=== PATIENT | female | born 1960 | race Caucasian/White ===

== ENCOUNTER → 2017-03-04 | Day surgery (SDC) | payer OTHER ==
[~2017-03-04] MED LIST: BROMSYP PO; BUPIVACAINE/EPINEPHRINE 0.25% 50 ML VIAL ONE; CETI10CA3 PO; COZA100T PO; EFFE150C PO; FLUT1SPR5 EACH NARE; INFL1INJ56 IM; KETOROLAC TROMETHAMINE 30 MG/ML (IVP) VIAL IV PUSH ONE; LACTATED RINGER'S 1000 ML INJ 1,000 ML ONE; LEVEMIR SQ; MEPERIDINE HCL 50 MG/ML VIAL ONE; METO25TA6 PO; MIDAZOLAM HCL 2 MG/2 ML VIAL ONE; NOVOLOGP2 SQ; NOVOLOGSS SQ; ONDANSETRON HCL 4 MG/2 ML VIAL IV PUSH ONE; PERC5TAB12 PO; PROPOFOL 200 MG/20 ML AMP IV ONE; ROPI2TAB PO; TIZA4TAB PO; VANCOMYCIN HCL 1000 MG VIAL ONE; XANA1TAB2 PO; ceFAZolin INJ 1,000 MG VIAL ONE
--- NOTE | 2017-03-09 08:37 | PD.OP ---
cc: Zak Humphrey Jr., MD Operative Report Date of Surgery: Mar 04, 2017 Preoperative Diagnosis: painful hardware right clavicle Postoperative Diagnosis: same Procedure: right clavicle removal of hardware Anesthesia: gen Surgeon: Zak Humphrey Head Charger(s): staff Resident Surgeon: none Operation and Findings: INDICATIONS FOR OPERATION: The patient is a 56 year-old female Status post RIGHT clavicle reduction internal fixation. The fracture has healed and she subsequently complains of painful hardware in RIGHT clavicle. She now presents for removal of hardware. After thorough discussion of risks, benefits and alternatives, informed consent was obtained for removal of hardware of the RIGHT clavicle. DESCRIPTION OF OPERATION: The patient was brought to the OR and place supine. After general anesthesia was induced, the patient was positioned in the beach- chair position. Next, the right upper extremity was prepped and draped in the usual sterile fashion, including the clavicle. Next, a standard incision was made Directly through the previous scar. Dissection was carried down to the deep layer exposing the clavicle hardware. Using the appropriate screwdriver the screws were removed first and the plate was elevated off the bone. The fracture has completely healed. Plain films were obtained in the operating room showing Complete removal of all hardware. Next, the wound was closed in layers followed by application of a sterile dressing over the skin. The patient was placed into a sling postoperatively. The patient was then awakened from anesthesia, transferred back onto the stretcher, and taken to the PACU for recovery. There were no complications. Zak Humphrey Jr., MD Mar 09, 2017 08:37
== END | disposition home or self-care (01) ==
LOC: ESDC 10:45
PROVIDERS: ATTEND Orthopaedic Surgery
DX: T84.84XA Pain due to internal orthopedic prosthetic devices, implants and grafts, initial encounter (principal)
CPT/HCPCS: 00450; 20680; 73020; 76000; J0690; J1885; J2175; J2250; J2405; J3010; J3370; J7120

== ENCOUNTER 2017-03-31 16:07 | Emergency (ER) | payer OTHER ==
[~2017-03-31] VITALS: Ht 167.6 cm; Wt 90.0 kg
[~2017-03-31 16:07] MED LIST changes: -BUPIVACAINE/EPINEPHRINE 0.25% 50 ML VIAL ONE; -INFL1INJ56 IM; -KETOROLAC TROMETHAMINE 30 MG/ML (IVP) VIAL IV PUSH ONE; -LACTATED RINGER'S 1000 ML INJ 1,000 ML ONE; -MEPERIDINE HCL 50 MG/ML VIAL ONE; -METO25TA6 PO; -MIDAZOLAM HCL 2 MG/2 ML VIAL ONE; -ONDANSETRON HCL 4 MG/2 ML VIAL IV PUSH ONE; -PROPOFOL 200 MG/20 ML AMP IV ONE; -VANCOMYCIN HCL 1000 MG VIAL ONE; -ceFAZolin INJ 1,000 MG VIAL ONE
[2017-03-31 16:10] VITALS: BP 143/92; PULSE 112; RESP 16; TEMP 98.2; O2SAT 98
[2017-03-31] MEDS ORDERED: SODIUM CHLORIDE 0.9% FLUSH 10 ML FLUSH IVF PRN (17:00)
[2017-03-31] MEDS ORDERED: SODIUM CHLOR 0.9% 1000 ML INJ 1,000 ML IV ONE (17:00)
--- NOTE | 2017-03-31 17:03 | PD ---
HPI Chief Complaint: Cardiac Complaint Time Seen by Provider: 16:57 Travel History International Travel<30 days: No Contact w/Intl Traveler<30days: No Traveled to known affect area: No History of Present Illness HPI 48-year-old female presents to the emergency department for evaluation of hypertension, tachycardia. She states is been ongoing for over 2 weeks. She reports increased stress in her life with her being sick and her mother- in-law being admitted to the psychiatric unit. Patient states that 2 days ago, she was dizzy and she fell and hit her head. No loss of consciousness. She does not take anticoagulants. No severe headache. She states the dizziness has resolved since then. She also states that 2 days ago, she had diarrhea and stomach cramping. These symptoms have also resolved. She denies any headache. No fevers or chills. No chest pain or shortness of breath. No abdominal pain. No nausea, vomiting, diarrhea. Patient brings a list of blood pressures with her that range from 120-160 systolic. She is concerned of her blood pressure. She currently takes losartan for her blood pressure. Patient follows up with the resident of the family practice clinic. Upon review of previous vital signs, the patient has history of tachycardia for several months. PFSH Past Medical History Hx Anticoagulant Therapy: Yes Cardiovascular Problems: Yes Diabetes: Yes Hypertension: Yes Reproductive: Yes (MULTIPLE ABLATIONS, OOPHORECTOMY, HYSTERECTOMY) Past Surgical History Abdominal Surgery: Yes (MULTIPLE ABDOMINAL SURGERIES ) Gynecologic Surgery: Yes (OOPHORECTOMY) Hysterectomy: Yes Other Surgery: Yes (BREAST SURGERY 1983 ) Social History Alcohol Use: Yes (OCCASIONALLY) Tobacco Use: Yes (3-4 CIGARETTES OCCASIONALLY/SOCIALLY ) Substance Use: Yes (MARIJUANA ) Allergies-Medications (Allergen,Severity, Reaction): Coded Allergies: No Known Allergies (Unverified , 03/31/17) Reported Meds & Prescriptions Reported Meds & Active Scripts Active Bromfed DM Liq (Tscbfpivmukwwql-Neagmmwqeetwmmn-YJ Liq) 30-2-10 Mg/5 Ml Syrp 5 Ml PO Q6H PRN Xanax (Alprazolam) 1 Mg Tab 1 Mg PO Q8H PRN Ropinirole 2 Mg Tab 2 Mg PO HS Tizanidine (Tizanidine HCl) 4 Mg Tab 4 Mg PO TID Novolog Inj (Insulin Aspart) 1,000 Unit/10 Ml Vial 5-25 Units SQ TIDAC sugars<70,0units;-325,5units;sugar 200-249,10units;sugar 250-299,15units; [id number],20units;sugar>349,25units Levemir Inj (Insulin Detemir) 1,000 unit/ 10 ML Vial 40 Units SQ DAILY Do not mix with any other Insulin. Effexor XR 24 HR (Venlafaxine HCl) 150 Mg Cap 150 Mg PO DAILY Zyrtec (Cetirizine HCl) 10 Mg Capsule 10 Tab PO DAILY Flonase Nasal [place] (Fluticasone Nasal [place]) 50 Mcg/Act [place] 50 Mcg EACH NARE BID Cozaar (Losartan Potassium) 100 Mg Tab 100 Mg PO DAILY Review of Systems Except as stated in HPI: all other systems reviewed are Neg Physical Exam Narrative GENERAL: Well-nourished, well-developed female patient, afebrile. SKIN: Focused skin assessment warm/dry. Patient has healing abrasion to the left forehead HEAD: Normocephalic. ENT: Mucosa pink and moist. No erythema or exudates. No uvular edema. No uvular , palatal, or tonsillar deviation. Airway patent. Nasal turbinates appear normal without nasal blood, purulent drainage or septal hematoma. EYES: No scleral icterus. No injection or drainage. NECK: Supple, trachea midline. No JVD or lymphadenopathy. CARDIOVASCULAR: Regular rate and rhythm without murmurs, gallops, or rubs. Bilateral radial and pedal pulses are 2+. RESPIRATORY: Breath sounds equal bilaterally. No accessory muscle use. Lungs sounds are clear to auscultation. GASTROINTESTINAL: Abdomen soft, non-tender, nondistended. MUSCULOSKELETAL: No cyanosis, or edema. BACK: Nontender without obvious deformity. No CVA tenderness. Data Data Last Documented VS Vital Signs Date Time Temp Pulse Resp B/P (MAP) Pulse Ox O2 Delivery O2 Flow Rate FiO2 03/31/17 19:31 98 20 130/67 (88) 99 Room Air 03/31/17 16:10 98.2 Orders Orders Basic Metabolic Panel (Bmp) (03/31/17 16:56) Ckmb (Isoenzyme) Profile (03/31/17 16:56) Complete Blood Count With Diff (03/31/17 16:56) Magnesium (Mg) (03/31/17 16:56) Troponin I (03/31/17 16:56) Ecg Monitoring (03/31/17 16:56) Bilateral Bp Monitoring (03/31/17 16:56) Iv Access Insert/Monitor (03/31/17 16:56) Oximetry (03/31/17 16:56) Oxygen Administration (03/31/17 16:56) Sodium Chloride 0.9% Flush (Ns Flush) (03/31/17 17:00) Sodium Chlor 0.9% 1000 Ml Inj (Ns 1000 M (03/31/17 17:00) Electrocardiogram (03/31/17 ) Urinalysis - C+S If Indicated (03/31/17 16:57) Dextrose 50% In [place] (Syr) Inj (D50w (Syr (03/31/17 18:45) Diet Diabetic (03/31/17 Dinner) Dextrose 50% In [place] (Syr) Inj (D50w (Syr (03/31/17 18:32) Labs Laboratory Tests Test 03/31/17 14:05 03/31/17 17:00 White Blood Count 13.1 TH/MM3 Red Blood Count 4.38 MIL/MM3 Hemoglobin 12.3 GM/DL Hematocrit 37.2 % Mean Corpuscular Volume 85.0 FL Mean Corpuscular Hemoglobin 28.1 PG Mean Corpuscular Hemoglobin Concent 33.0 % Red Cell Distribution Width 14.1 % Platelet Count 328 TH/MM3 Mean Platelet Volume 9.2 FL Neutrophils (%) (Auto) 50.7 % Lymphocytes (%) (Auto) 40.6 % Monocytes (%) (Auto) 5.2 % Eosinophils (%) (Auto) 2.2 % Basophils (%) (Auto) 1.3 % Neutrophils # (Auto) 6.6 TH/MM3 Lymphocytes # (Auto) 5.3 TH/MM3 Monocytes # (Auto) 0.7 TH/MM3 Eosinophils # (Auto) 0.3 TH/MM3 Basophils # (Auto) 0.2 TH/MM3 CBC Comment AUTO DIFF Differential Total Cells Counted 100 Neutrophils % (Manual) 39 % Lymphocytes % 57 % Monocytes % 2 % Eosinophils % 2 % Neutrophils # (Manual) 5.1 TH/MM3 Differential Comment FINAL DIFF MANUAL Blood Urea Nitrogen 9 MG/DL Creatinine 0.99 MG/DL Random Glucose 36 MG/DL Calcium Level 9.7 MG/DL Magnesium Level 2.0 MG/DL Sodium Level 138 MEQ/L Potassium Level 3.5 MEQ/L Chloride Level 104 MEQ/L Carbon Dioxide Level 25.1 MEQ/L Anion Gap 9 MEQ/L Estimat Glomerular Filtration Rate 58 ML/MIN Total Creatine Kinase 87 U/L Troponin I LESS THAN 0.02 NG/ML Urine Color COLORLESS Urine Turbidity CLEAR Urine pH 6.0 Urine Specific [place] 1.002 Urine Protein NEG mg/dL Urine Glucose (UA) NEG mg/dL Urine Ketones NEG mg/dL Urine Occult Blood NEG Urine Nitrite NEG Urine Bilirubin NEG Urine Urobilinogen LESS THAN 2.0 MG/DL Urine Leukocyte Esterase NEG Urine Squamous Epithelial Cells 1 /hpf Microscopic Urinalysis Comment CULT NOT INDICATED MDM Medical Decision Making Medical Screen Exam Complete: Yes Emergency Medical Condition: Yes Medical Record Reviewed: Yes Differential Diagnosis Anxiety versus electrolyte abnormality versus dehydration versus unlikely ACS Narrative Course 56-year-old female presents to the emergency department for evaluation of tachycardia and hypertension and ongoing for several weeks. Upon review of vital signs, the patient's been tachycardic since April 2016. Blood pressure here is 143/90 in triage. Patient states she was dizzy and had diarrhea 2 days ago, but reports these symptoms are completely resolved. EKG shows sinus tachycardia, heart rate 107, no acute ST changes. CBC, BMP, CK, troponin, magnesium, UA are ordered and pending. Patient is given normal saline 1 L IV bolus. CBC shows leukocytosis 13.1. BMP shows hypoglycemia 36. CK is 87. Troponin is less than 0.02. Magnesium is 2.0. UA is negative for acute infection. With glucose of 36. Nurse's directed at bedside was 66. The patient is asymptomatic. She does state that she has been taken her insulin today, but not eating. Patient is given 1 amp of D50. Patient is given food. Blood sugars will be checked every hour 3. These are 114,180, and 163. The patient was discharged in stable condition with instructions, including return instructions and follow up instructions. Diagnosis Primary Impression: Hypoglycemia Additional Impression: Hypertension Qualified Codes: I10 - Essential (primary) hypertension Referrals: Primary Care Physician 2 days Patient Instructions: Chronic Hypertension (ED), General Instructions, Hypoglycemia in a Person with Diabetes (ED) Additional Instructions: Monitor your blood glucose closely. Follow up with your primary care physician. Return to the emergency department for any acute, worsening of symptoms. Med/Other Pt SpecificInfo: No Change to Meds Disposition: 01 DISCHARGE HOME Condition: Stable Juli Correa Mar 31, 2017 17:02
[2017-03-31 17:37] LABS: BLOOD, URINE NEG (NEG); COMMENT (UR) CULT NOT INDICATED; CULTURE IF INDICATED CULT NOT INDICATED; GLUCOSE,URINE NEG (NEG); KETONE, URINE NEG (NEG); NITRITE,URINE NEG (NEG); SQUAMOUS EPITHELIAL CELL URINE 1 /hpf (0-5); URINE COLOR COLORLESS (YELLW/STRAW)
[2017-03-31 17:40] LABS: AUTOMATED NEUTROPHIL # 6.6 TH/MM3 (1.8-7.7); BASOPHIL # 0.2 TH/MM3 (0-0.2); BASOPHIL % 1.3 % (0.0-2.0); EOSINOPHIL # 0.3 TH/MM3 (0-0.4); EOSINOPHIL % 2.2 % (0.0-4.0); HEMATOCRIT 37.2 % (35.0-46.0); LYMPH % 40.6 % (9.0-44.0); LYMPHOCYTE # 5.3 TH/MM3 (1.0-4.8); MEAN CORPUSCULAR HEMOGLOBIN 28.1 PG (27.0-34.0); MONO % 5.2 % (0.0-8.0); NEUT % 50.7 % (16.0-70.0); PLATELET COUNT 328 TH/MM3 (150-450); RED BLOOD COUNT 4.38 MIL/MM3 (4.00-5.30); RED CELL DISTRIBUTION WIDTH 14.1 % (11.6-17.2); WHITE BLOOD COUNT 13.1 TH/MM3 (4.0-11.0)
[2017-03-31 17:53] LABS: HEMO FLAGS AUTO DIFF
[2017-03-31 18:02] LABS: ANION GAP 9 MEQ/L (5-15); BICARBONATE 25.1 MEQ/L (21.0-32.0); BLOOD UREA NITROGEN 9 MG/DL (7-18); CHLORIDE 104 MEQ/L (98-107); GLOMERULAR FILTRATION RATE 58 ML/MIN (>89); POTASSIUM 3.5 MEQ/L (3.5-5.1); SODIUM (NA) 138 MEQ/L (136-145)
[2017-03-31 18:24] LABS: CREATINE KINASE 87 U/L (26-192)
[2017-03-31] MEDS ORDERED: DEXTROSE 50% IN WATER 50 ML SYRINGE ONE (18:32)
[2017-03-31] MEDS ORDERED: DEXTROSE 50% IN WATER 50 ML SYRINGE IV PUSH ONE (18:45)
[2017-03-31 19:31] VITALS: BP 130/67; PULSE 98; RESP 20; O2SAT 99
[2017-03-31 19:55] LABS: EOSINOPHILS 2 % (0-4); NEUTROPHIL # MANUAL DIFF 5.1 TH/MM3 (1.8-7.7); POLYS (SEG NEUTROPHILS) 39 % (16-70); SCAN/DIFF FINAL DIFF MANUAL; WBC DIFF SAMPLE 100
--- NOTE | 2017-04-01 13:04 | EKG ---
Date Performed: 03/31/2017 Time Performed: 16:51:21 PTAGE: 56 years EKG: SINUS TACHYCARDIA ABNORMAL RHYTHM ECG NO PREVIOUS TRACING DOCTOR: Siva Olmos Interpretating Date/Time 04/01/2017 13:02:41
[2017-04-11] MEDS ORDERED: METO25TA6 PO (11:06)
[2017-04-11] MEDS ORDERED: COZA100T PO (11:06)
[2017-04-11] MEDS ORDERED: INFL1INJ56 IM (11:09)
[2017-04-19] MEDS ORDERED: XANA1TAB2 PO (14:12)
[2017-04-19] MEDS ORDERED: INFL1INJ56 IM (14:13)
[2017-04-19] MEDS ORDERED: METO25TA6 PO (14:15)
== END 2017-03-31 22:18 | disposition home or self-care (01) ==
LOC: NEPC 16:07
DX: E16.2 Hypoglycemia, unspecified (principal); I10 Essential (primary) hypertension; E11.9 Type 2 diabetes mellitus without complications; Z72.0 Tobacco use; R94.31 Abnormal electrocardiogram [ECG] [EKG]; Z79.01 Long term (current) use of anticoagulants
CPT/HCPCS: 80048; 81001; 82550; 83735; 84484; 85007; 85027; 93005; 96374; 99284; J7030

== ENCOUNTER 2017-08-08 17:40 | Inpatient (IN) | payer OTHER, MEDICARE ==
[~2017-08-08 17:40] MED LIST changes: +BLOOD GLUCOSE T1 TES; -BROMSYP PO; +FREEMIS45; +METO1TAB42 PO; -NOVOLOGSS SQ; -PERC5TAB12 PO
[2017-08-08 17:42] VITALS: BP 155/88; PULSE 89; RESP 15; TEMP 97.4; O2SAT 99
--- NOTE | 2017-08-08 18:20 | RADRPT ---
EXAM DATE/TIME: 08/08/2017 17:59 [facility] COMPARISON: No previous studies available for comparison. INDICATIONS : Pain laceration with redness and swelling anterior left hand MEDICAL HISTORY : None. SURGICAL HISTORY : None. ENCOUNTER: Initial ACUITY: 3 days PAIN SCORE: 8/10 LOCATION: Left Hand FINDINGS: Three view examination of the left hand demonstrates no soft tissue swelling, dislocation, or fractur e. The carpal bones appear intact. The interphalangeal and metacarpophalangeal joints are intact. Bony mineralization is normal. CONCLUSION: 1. No acute bony abnormality. No radiopaque foreign body. Blake Arias MD on August 08, 2017 at 18:16 Board Certified Radiologist. This report was verified electronically.
[2017-08-08 19:21] LABS: AUTOMATED NEUTROPHIL # 7.3 TH/MM3 (1.8-7.7); BASOPHIL # 0.1 TH/MM3 (0-0.2); BASOPHIL % 0.7 % (0.0-2.0); EOSINOPHIL # 0.3 TH/MM3 (0-0.4); EOSINOPHIL % 2.4 % (0.0-4.0); HEMATOCRIT 36.3 % (35.0-46.0); LYMPH % 27.7 % (9.0-44.0); LYMPHOCYTE # 3.2 TH/MM3 (1.0-4.8); MEAN CELL VOLUME 83.8 FL (80.0-100.0); MEAN CORPUSCULAR HEMOGLOBIN 27.6 PG (27.0-34.0); MEAN CORPUSCULAR HGB CONC 32.9 % (32.0-36.0); MEAN PLATELET VOLUME 8.3 FL (7.0-11.0); MONO % 6.2 % (0.0-8.0); MONOCYTE # 0.7 TH/MM3 (0-0.9); PLATELET COUNT 282 TH/MM3 (150-450); RED BLOOD COUNT 4.33 MIL/MM3 (4.00-5.30); RED CELL DISTRIBUTION WIDTH 15.1 % (11.6-17.2); WHITE BLOOD COUNT 11.6 TH/MM3 (4.0-11.0)
[2017-08-08 19:35] LABS: CALCIUM 9.4 MG/DL (8.5-10.1); CREATININE 0.99 MG/DL (0.50-1.00); PROTHROMBIN TIME - PATIENT 10.1 SEC (9.8-11.6)
[2017-08-08] MEDS ORDERED: PIPERACIL-TAZO 3.375 GM PREMIX 50 ML IV ONE (20:00)
[2017-08-08] MEDS ORDERED: VANCOMYCIN INJ 1,000 MG in SODIUM CHLOR 0.9% 250 ML INJ 250 ML IV ONE (20:00)
[2017-08-08] MEDS ORDERED: DEXTROSE 25% IN WATER 10 ML SYRINGE IV PUSH ONE (20:00)
[2017-08-08] MEDS ORDERED: KETOROLAC TROMETHAMINE 30 MG/ML (IVP) VIAL IV PUSH ONE (20:15)
[2017-08-08] MEDS ORDERED: DEXTROSE 50% IN WATER 50 ML SYRINGE IV ONE (20:30)
[2017-08-08] MEDS ORDERED: MORPHINE SULFATE 4 MG/ML INJ IV PUSH ONE (20:30)
[2017-08-08] MEDS ORDERED: ONDANSETRON HCL 4 MG/2 ML VIAL IV PUSH ONE (20:30)
--- NOTE | 2017-08-08 20:41 | HHI.HP ---
[facility] Service Family Medicine Primary Care Physician Gopal Raman MD Admission Diagnosis left hand cellulitis with lymphadenitis Diagnoses: Chief Complaint: hand infection International Travel<30 Days: No Contact w/Intl Traveler<30days: No Known Affected Area: No History of Present Illness Patient is a 56-year-old female with a past medical history significant for DM type II, hypertension, hyperlipidemia, endometriosis, depression and anxiety who presents today for a hand infection. She was cutting an Avocado two days ago when she accidentally sliced her left hand with the knife. The site started getting red, swollen, and painful and has progressively worsened over the past two days. The redness is now extending up her arm. She is having trouble flexing her fingers due to pain. The pain is rated 9/10. She denies any fever. She did take 4 pills of a leftover Clindamycin 300mg prescription over the course of the last two days. She was evaluated by her PCP, Dr. Gopal Raman , today and was sent to the ED for further evaluation and treatment. She notes that she has also had diarrhea for the past week, but thinks this may be due to stress. Her one week ago while on Hospice and she states that her entire world is flipped upside down. She has been having a difficult time coping with his loss and recently had her Xanax increased to 2mg PO TID to help with her anxiety during this stressful time. (Angélica Carrion MD, R3) Review of Systems Constitutional: COMPLAINS OF: Fatigue, Change in appetite (while in mourning), DENIES: Fever, Chills Eyes: DENIES: Blurred vision, Eye pain Ears, nose, mouth, throat: DENIES: Throat pain Respiratory: DENIES: Cough, Shortness of breath Cardiovascular: DENIES: Chest pain Gastrointestinal: COMPLAINS OF: Diarrhea, DENIES: Abdominal pain, Nausea, Vomiting Musculoskeletal: COMPLAINS OF: Muscle aches, Back pain (chronic) Integumentary: COMPLAINS OF: Abnormal pigmentation Hematologic/lymphatic: DENIES: Bruising Immunologic/allergic: DENIES: Urticaria Neurologic: DENIES: Paresthesias Psychiatric: COMPLAINS OF: Anxiety, Depression (Angélica Carrion MD, R3) Past Family Social History Past Medical History DM, takes insulin HTN High cholesterol chronic severe pelvic pain Endometriosis Anemia-hx of iron infusions Linares esophagus chronic headaches depression anxiety dermatitis on scalp decreased kidney function Past Surgical History Hysterectomy oophorectomy spinal cord stimulator surgery x 4 pelvic nerve blocks cholecystectomy appendectomy gastric bypass in 1999, lost 180 lbs Reported Medications Reported Meds & Active Scripts Active Tizanidine (Tizanidine HCl) 4 Mg Tab 4 Mg PO TID Xanax (Alprazolam) 2 Mg Tab 2 Mg PO Q8H PRN Ropinirole 2 Mg Tab 2 Mg PO HS Zyrtec (Cetirizine HCl) 10 Mg Capsule 10 Tab PO DAILY Freestyle Lite Blood Glucose Monitor (Device) 1 Mis Mis Kit .XX QID Check blood sugar 4 times daily Blood Glucose Test Strips Strips Strip Ea .XX QID Check blood sugar 4 times daily Metoprolol Succinate ER 24 HR (Metoprolol Succinate) 25 Mg Tab 37.5 Mg PO DAILY Cozaar (Losartan Potassium) 100 Mg Tab 100 Mg PO DAILY Effexor XR 24 HR (Venlafaxine HCl) 150 Mg Cap 150 Mg PO DAILY Novolog Inj (Insulin Aspart) 1,000 Unit/10 Ml Vial 5-25 Units SQ TIDAC sugars<70,0units;ozwta478-304,5units;sugar 200-249,10units;sugar 250-299,15units; ornjz100-525,20units;sugar>349,25units Levemir Inj (Insulin Detemir) 1,000 unit/ 10 ML Vial 40 Units SQ DAILY Do not mix with any other Insulin. Flonase Nasal [place] (Fluticasone Nasal [place]) 50 Mcg/Act [place] 50 Mcg EACH NARE BID (Angélica Carrion MD, R3) Allergies: Coded Allergies: No Known Allergies (Unverified Allergy, Unknown, 08/08/17) Family History Mom: 79, DM, pacemaker, hearing loss Father: at 69 diagnosed with Alzheimers at 53 Brother: 53, HTN, bilateral hip replacements Brother: 55, HIV positive, bilateral hip replacements Social History - this week She is disabled from chronic pelvic pain Smokes occasionally, 1 pack every couple of months, had been smoking since 10yo occasionally, Drinks 4-5 beers per week started at 16, marijuana started smoking at 16 smokes once every couple of months, no other drugs. (Angélica Carrion MD, R3) Physical Exam Vital Signs Vital Signs Date Time Temp Pulse Resp B/P (MAP) Pulse Ox O2 Delivery O2 Flow Rate FiO2 08/08/17 17:42 97.4 89 15 155/88 (110) 99 Physical Exam GENERAL: This is a well-nourished, well-developed obese female patient who appears fatigued. SKIN: No rashes, ecchymoses or lesions. Cool and dry. Areas of scabbed excoriations on both arms. Left palm with 2 cm laceration surrounded by 3 x 4 cm area of significant erythema and edema, erythema extends about 12 cm up left arm- area demarcated with a marker on today's exam. No purulent drainage or bleeding. Warmth and tenderness to the touch. HEAD: Atraumatic. Normocephalic. No temporal or scalp tenderness. EYES: Pupils equal round and reactive. Extraocular motions intact. No scleral icterus. No injection or drainage. ENT: Nose without bleeding, purulent drainage or septal hematoma. Throat without erythema, tonsillar hypertrophy or exudate. Uvula midline. Airway patent. NECK: Trachea midline. No JVD or lymphadenopathy. Supple, nontender, no meningeal signs. CARDIOVASCULAR: Regular rate and rhythm without murmurs, gallops, or rubs. RESPIRATORY: Clear to auscultation. Breath sounds equal bilaterally. No wheezes , rales, or rhonchi. GASTROINTESTINAL: Abdomen soft, non-tender, nondistended. No hepato-splenomegaly , or palpable masses. No guarding. MUSCULOSKELETAL: Extremities without clubbing, cyanosis, or edema. No joint tenderness, effusion, or edema noted. No calf tenderness. Pain with passive extension and flexion of left first digit. Range of motion of left fingers limited by pain. NEUROLOGICAL: Awake and alert. Cranial nerves II through XII intact. Motor and sensory grossly within normal limits. Normal speech. PSYCHIATRIC: Sad mood and depressed affect, appropriate insight and judgement, good eye contact. Laboratory Laboratory Tests Test 08/08/17 18:44 White Blood Count 11.6 Red Blood Count 4.33 Hemoglobin 12.0 Hematocrit 36.3 Mean Corpuscular Volume 83.8 Mean Corpuscular Hemoglobin 27.6 Mean Corpuscular Hemoglobin Concent 32.9 Red Cell Distribution Width 15.1 Platelet Count 282 Mean Platelet Volume 8.3 Neutrophils (%) (Auto) 63.0 Lymphocytes (%) (Auto) 27.7 Monocytes (%) (Auto) 6.2 Eosinophils (%) (Auto) 2.4 Basophils (%) (Auto) 0.7 Neutrophils # (Auto) 7.3 Lymphocytes # (Auto) 3.2 Monocytes # (Auto) 0.7 Eosinophils # (Auto) 0.3 Basophils # (Auto) 0.1 CBC Comment DIFF FINAL Differential Comment Prothrombin Time 10.1 Prothromb Time International Ratio 1.0 Activated Partial Thromboplast Time 26.5 Blood Urea Nitrogen 11 Creatinine 0.99 Random Glucose 45 Calcium Level 9.4 Sodium Level 140 Potassium Level 3.7 Chloride Level 107 Carbon Dioxide Level 26.0 Anion Gap 7 Estimat Glomerular Filtration Rate 58 Date/Time Source Procedure Growth Status 08/08/17 18:44 Blood Peripheral Aerobic Blood Culture Pending Received 08/08/17 18:44 Blood Peripheral Anaerobic Blood Culture Pending Received (Angélica Carrion MD, R3) Result Diagram: 08/08/17 1844 08/08/17 1844 Imaging Last Impressions Hand X-Ray 08/08/17 0000 Signed Impressions: Service Date/Time: Tuesday, August 08, 2017 17:59 - CONCLUSION: 1. No acute bony abnormality. No radiopaque foreign body. Blake Arias MD (Angélica Carrion MD, R3) Caprini VTE Risk Assessment Caprini VTE Risk Assessment: Mod/High Risk (score >= 2) Caprini Risk Assessment Model Point Value = 1 Point Value = 2 Point Value = 3 Point Value = 5 Age 41-60 Minor surgery BMI > 25 kg/m2 Swollen legs Varicose veins or History of unexplained or recurrent spontaneous Oral contraceptives or hormone replacement Sepsis (< 1 month) Serious lung disease, including pneumonia (< 1 month) Abnormal pulmonary function Acute myocardial infarction Congestive heart failure (< 1 month) History of inflammatory bowel disease Medical patient at bed rest Age 61-74 Arthroscopic surgery Major open surgery (> 45 min) Laparoscopic surgery (> 45 min) Malignancy Confined to bed (> 72 hours) Immobilizing plaster cast Central venous access Age >= 75 History of VTE Family history of VTE Factor V Leiden Prothrombin [id number] Lupus anticoagulant Anticardiolipin antibodies Elevated serum homocysteine Heparin-induced thrombocytopenia Other congenital or acquired thrombophilia Stroke (< 1 month) Elective arthroplasty Hip, pelvis, or leg fracture Acute spinal cord injury (< 1 month) Prophylaxis Regimen Total Risk Factor Score Risk Level Prophylaxis Regimen 0-1 Low Early ambulation 2 Moderate Order ONE of the following: *Sequential Compression Device (SCD) *Heparin 5000 units SQ BID 3-4 Higher Order ONE of the following medications: *Heparin 5000 units SQ TID *Enoxaparin/Lovenox 40 mg SQ daily (WT < 150 kg, CrCl > 30 mL/min) *Enoxaparin/Lovenox 30 mg SQ daily (WT < 150 kg, CrCl > 10-29 mL/min) *Enoxaparin/Lovenox 30 mg SQ BID (WT < 150 kg, CrCl > 30 mL/min) AND/OR *Sequential Compression Device (SCD) 5 or more Highest Order ONE of the following medications: *Heparin 5000 units SQ TID (Preferred with Epidurals) *Enoxaparin/Lovenox 40 mg SQ daily (WT < 150 kg, CrCl > 30 mL/min) *Enoxaparin/Lovenox 30 mg SQ daily (WT < 150 kg, CrCl > 10-29 mL/min) *Enoxaparin/Lovenox 30 mg SQ BID (WT < 150 kg, CrCl > 30 mL/min) AND *Sequential Compression Device (SCD) (Angélica Carrion MD, R3) Assessment and Plan Assessment and Plan Patient is a 56-year-old female with a past medical history significant for DM type II, hypertension, hyperlipidemia, endometriosis, depression and anxiety who presents today for a hand laceration and is admitted for cellulitis. Code Status DNR Discussed Condition With wdw Dr. Olmos and Dr. Garcia R3 (Angélica Carrion MD, R3) Attending Attestation The patient has been seen and examined this am, H&P reviewed. The chart and all resident notes have been reviewed. I agree that inpatient care is appropriate and that a two midnight stay is expected for the reasons documented in the resident history and physical. I have discussed this with the resident and certify the residents order for inpatient admission. (Marlyn Olmos MD) Problem List: (1) Cellulitis of hand, left ICD Codes: L03.114 - Cellulitis of left upper limb Status: Acute Plan: Physical exam consistent with non-purulent cellulitis. Leukocytosis of 11.6. Afebrile. BP WNLs and pt. not tachycardic. Blood cultures pending. IV Vanc. Q12 hrs (pharm assisting with dosing.) and Zosyn 3.375g IV Q6H Pain control with [place] PRN, Morphine PRN Breakthrough pain Elevate affected area. Continue to monitor closely for signs of tendon involvement. (2) T2DM (type 2 diabetes mellitus) ICD Codes: E11.9 - Type 2 diabetes mellitus without complications Status: Chronic Plan: On Levemir 40 units SQ daily and Novolog TIDAC Hypoglycemic on admission Low dose SSI with Accu-checks (3) Anxiety ICD Codes: F41.9 - Anxiety disorder, unspecified Status: Chronic Plan: Continue Xanax 2mg PO TID (4) Hypertension ICD Codes: I10 - Essential (primary) hypertension Status: Chronic Plan: BP elevated on admission at 155/88 Continue home Losartan 100mg PO Daily and Metoprolol 37.5mg PO daily (5) Nutrition, metabolism, and development symptoms ICD Codes: R63.8 - Other symptoms and signs concerning food and fluid intake Status: Acute Plan: Fluids: Maintenance with NS @ 130ml/hr Electrolytes: wnl, continue to monitor and replete PRN Nutrition: Diabetic Diet DVT Ppx: Heparin 5000 units BID (Angélica Carrion MD, R3) Problem List: (1) Cellulitis of hand, left ICD Codes: L03.114 - Cellulitis of left upper limb Status: Acute (2) Anxiety ICD Codes: F41.9 - Anxiety disorder, unspecified Status: Chronic (3) Hypertension ICD Codes: I10 - Essential (primary) hypertension Status: Chronic (4) Nutrition, metabolism, and development symptoms ICD Codes: R63.8 - Other symptoms and signs concerning food and fluid intake Status: Acute (5) T2DM (type 2 diabetes mellitus) ICD Codes: E11.9 - Type 2 diabetes mellitus without complications Status: Chronic (6) Diarrhea ICD Codes: R19.7 - Diarrhea, unspecified Status: Acute Plan: Baseline C diff testing in pt with 1wk hx watery diarrhea, no other risk factors (Marlyn Olmos MD) Physician Certification 2 Midnight Certification Type: Admission for Inpatient Services Order for Inpatient Services The services are ordered in accordance with Medicare regulations or non- Medicare payer requirements, as applicable. In the case of services not specified as inpatient-only, they are appropriately provided as inpatient services in accordance with the 2-midnight benchmark. Estimated LOS (days): 2 days is the estimated time the patient will need to remain in the hospital, assuming treatment plan goals are met and no additional complications. Post-Hospital Plan: Home (Angélica Carrion MD, R3) Problem Qualifiers (1) T2DM (type 2 diabetes mellitus): Qualified Codes: E11.9 - Type 2 diabetes mellitus without complications; Z79.4 - [facility]CI (current) use of insulin (2) Hypertension: Qualified Codes: I10 - Essential (primary) hypertension Angélica Carrion MD, R3 Aug 08, 2017 20:41 Marlyn Olmos MD Aug 09, 2017 09:36
--- NOTE | 2017-08-08 20:42 | PD ---
HPI Chief Complaint: Injury Time Seen by Provider: 19:51 Travel History International Travel<30 days: No Contact w/Intl Traveler<30days: No Traveled to known affect area: No History of Present Illness HPI 56-year-old female that presents to the ED for evaluation of cellulitis to the left hand. Patient reports that 2 days ago she was cutting vegetables and she actually cut her palm. She denies any other injury. Unclear of her last tetanus shot. Per patient since this started patient developed some swelling and redness. She's been having difficulty completely extending the digits. She has pain with flexion of the digits as well. She is able to do it however. He denies any numbness, tingling, weakness. She went to see her doctor Dr. Raman today who recommends that she comes here for IV antibiotics and admission. She denies any other medical issues. No allergies to medication. No chest pain or shortness of breath. History of diabetes. She was found to be hypoglycemic in triage and given Gatorade. PFSH Past Medical History Hx Anticoagulant Therapy: Yes Anxiety: Yes Cardiovascular Problems: Yes Diabetes: Yes Patient Takes Glucophage: No Hypertension: Yes Reproductive: Yes (MULTIPLE ABLATIONS, OOPHORECTOMY, HYSTERECTOMY) Influenza Vaccination: Yes Past Surgical History Abdominal Surgery: Yes (MULTIPLE ABDOMINAL SURGERIES ) Gynecologic Surgery: Yes (OOPHORECTOMY) Hysterectomy: Yes Other Surgery: Yes (BREAST SURGERY 1983 ) Social History Alcohol Use: Yes (OCCASIONALLY) Tobacco Use: Yes (3-4 CIGARETTES OCCASIONALLY/SOCIALLY ) Substance Use: Yes (MARIJUANA ) Allergies-Medications (Allergen,Severity, Reaction): Coded Allergies: No Known Allergies (Unverified Allergy, Unknown, 08/08/17) Reported Meds & Prescriptions Reported Meds & Active Scripts Active Tizanidine (Tizanidine HCl) 4 Mg Tab 4 Mg PO TID Xanax (Alprazolam) 1 Mg Tab 1 Mg PO Q8H PRN Ropinirole 2 Mg Tab 2 Mg PO HS Zyrtec (Cetirizine HCl) 10 Mg Capsule 10 Tab PO DAILY Freestyle Lite Blood Glucose Monitor (Device) 1 Mis Mis Kit .XX QID Check blood sugar 4 times daily Blood Glucose Test Strips Strips Strip Ea .XX QID Check blood sugar 4 times daily Metoprolol Succinate ER 24 HR (Metoprolol Succinate) 25 Mg Tab 37.5 Mg PO DAILY Cozaar (Losartan Potassium) 100 Mg Tab 100 Mg PO DAILY Effexor XR 24 HR (Venlafaxine HCl) 150 Mg Cap 150 Mg PO DAILY Novolog Inj (Insulin Aspart) 1,000 Unit/10 Ml Vial 5-25 Units SQ TIDAC sugars<70,0units;pfgli962-719,5units;sugar 200-249,10units;sugar 250-299,15units; huevw911-155,20units;sugar>349,25units Levemir Inj (Insulin Detemir) 1,000 unit/ 10 ML Vial 40 Units SQ DAILY Do not mix with any other Insulin. Flonase Nasal [place] (Fluticasone Nasal [place]) 50 Mcg/Act [place] 50 Mcg EACH NARE BID Review of Systems Except as stated in HPI: all other systems reviewed are Neg Physical Exam Narrative GENERAL: SKIN: Warm and dry. Patient has swelling and erythema noted on the palmar aspect of the left hand. About 3-5 cms in diameter. Patient does have a superficial laceration which appears to be healing but no purulence or mass deformity noted. Some erythema and swelling noted creeping up the wrist. Patient does have lymphadenopathy on the left side of the axilla. HEAD: Atraumatic. Normocephalic. EYES: Pupils equal and round. No scleral icterus. No injection or drainage. ENT: No nasal bleeding or discharge. Mucous membranes pink and moist. NECK: Trachea midline. No JVD. CARDIOVASCULAR: Regular rate and rhythm. No murmurs, S3, S4. RESPIRATORY: No accessory muscle use. Clear to auscultation. Breath sounds equal bilaterally. GASTROINTESTINAL: Abdomen soft, non-tender, nondistended. Hepatic and splenic margins not palpable. MUSCULOSKELETAL: Extremities without clubbing, cyanosis, or edema. No obvious deformities. Full range of motion of the upper and lower extremities bilaterally. 2+ pulses bilaterally. NEUROLOGICAL: Awake and alert. No obvious cranial nerve deficits. Motor grossly within normal limits. Five out of 5 muscle strength in the arms and legs. Normal speech. PSYCHIATRIC: Appropriate mood and affect; insight and judgment normal. Data Data Last Documented VS Vital Signs Date Time Temp Pulse Resp B/P (MAP) Pulse Ox O2 Delivery O2 Flow Rate FiO2 08/08/17 17:42 97.4 89 15 155/88 (110) 99 Orders Orders Hand, Complete ([id number]) (08/08/17 ) Complete Blood Count With Diff (08/08/17 17:48) Basic Metabolic Panel (Bmp) (08/08/17 17:48) Coag Profile (08/08/17 17:48) Blood Culture (08/08/17 17:48) Vancomycin Inj (Vancomycin Inj) (08/08/17 20:00) Piperacil-Tazo 3.375 Gm Premix (Zosyn 3. (08/08/17 20:00) Ketorolac Inj (Toradol Inj) (08/08/17 20:15) Morphine Inj (Morphine Inj) (08/08/17 20:30) Ondansetron Inj (Zofran Inj) (08/08/17 20:30) Dextrose 50% In [place] (Syr) Inj (D50w (Syr (08/08/17 20:30) Admit Order (Ed Use Only) (08/08/17 20:22) Labs Laboratory Tests Test 08/08/17 18:44 White Blood Count 11.6 TH/MM3 Red Blood Count 4.33 MIL/MM3 Hemoglobin 12.0 GM/DL Hematocrit 36.3 % Mean Corpuscular Volume 83.8 FL Mean Corpuscular Hemoglobin 27.6 PG Mean Corpuscular Hemoglobin Concent 32.9 % Red Cell Distribution Width 15.1 % Platelet Count 282 TH/MM3 Mean Platelet Volume 8.3 FL Neutrophils (%) (Auto) 63.0 % Lymphocytes (%) (Auto) 27.7 % Monocytes (%) (Auto) 6.2 % Eosinophils (%) (Auto) 2.4 % Basophils (%) (Auto) 0.7 % Neutrophils # (Auto) 7.3 TH/MM3 Lymphocytes # (Auto) 3.2 TH/MM3 Monocytes # (Auto) 0.7 TH/MM3 Eosinophils # (Auto) 0.3 TH/MM3 Basophils # (Auto) 0.1 TH/MM3 CBC Comment DIFF FINAL Differential Comment Prothrombin Time 10.1 SEC Prothromb Time International Ratio 1.0 RATIO Activated Partial Thromboplast Time 26.5 SEC Blood Urea Nitrogen 11 MG/DL Creatinine 0.99 MG/DL Random Glucose 45 MG/DL Calcium Level 9.4 MG/DL Sodium Level 140 MEQ/L Potassium Level 3.7 MEQ/L Chloride Level 107 MEQ/L Carbon Dioxide Level 26.0 MEQ/L Anion Gap 7 MEQ/L Estimat Glomerular Filtration Rate 58 ML/MIN MDM Medical Decision Making Medical Screen Exam Complete: Yes Emergency Medical Condition: Yes Medical Record Reviewed: Yes Interpretation(s) CBC & BMP Diagram 08/08/17 18:44 Calcium Level 9.4 Last Impressions Hand X-Ray 08/08/17 0000 Signed Impressions: Service Date/Time: Tuesday, August 08, 2017 17:59 - CONCLUSION: 1. No acute bony abnormality. No radiopaque foreign body. Blake Arias MD Differential Diagnosis Cellulitis versus hand infection versus less likely abscess or tenosynovitis Narrative Course 56-year-old female that presents to the ED for evaluation of possible left hand infection. X-ray and labs were ordered in triage. Labs and imaging essentially unremarkable. Patient does have what appears to be significant cellulitis to the left hand. Patient was brought here by her doctor for evaluation of this. Patient was started on IV antibiotics and pain medication. Case was discussed with the residents who agreed to admission to their team. Patient agrees with plan. Diagnosis Primary Impression: Cellulitis of hand, left Admitting Information Admitting Physician Requests: Observation Oscar Weston Aug 08, 2017 20:42
[2017-08-08] MEDS ORDERED: TETANUS/DIPHTHERIA TOXOID ADULT 0.5 ML VIAL IM ONE (20:45)
[2017-08-08] MEDS ORDERED: Vancomycin Consult Pharmacy 1 EA OTHER SCH (21:00)
[2017-08-08] MEDS: SODIUM CHLORIDE 0.9% FLUSH 10 ML FLUSH IV FLUSH SCH (21:00)
[2017-08-08] MEDS ORDERED: SODIUM CHLORIDE 0.9% FLUSH 10 ML FLUSH IV FLUSH PRN (21:00)
[2017-08-08] MEDS ORDERED: ACETAMINOPHEN 500 MG CPLT PO PRN (21:00)
[2017-08-08] MEDS ORDERED: GLUCAGON 1 MG/ML VIAL OTHER PRN (21:15)
[2017-08-08] MEDS ORDERED: DEXTROSE 50% IN WATER 50 ML VIAL(D50) IV PUSH PRN (21:15)
[2017-08-08] MEDS ORDERED: PILL SPLITTER OTHER PRN (21:30)
[2017-08-08] MEDS: SODIUM CHLOR 0.9% 1000 ML INJ 1,000 ML IV SCH (22:52)
[2017-08-08] MEDS ORDERED: ACETAMINOPHEN/HYDROcodone 325 MG/5 MG TAB PO PRN (23:45)
[2017-08-08] MEDS: HEPARIN SODIUM - SQ 10,000 UNITS/ML VIAL SQ SCH (23:45)
[2017-08-08] MEDS ORDERED: NALOXONE HCL 0.4 MG/ML AMP IV PUSH PRN (23:45)
[2017-08-08] MEDS ORDERED: MORPHINE SULFATE 2 MG/ML INJ IV PUSH PRN (23:45)
[2017-08-09 00:02] VITALS: BP 136/71; PULSE 68; RESP 18; TEMP 96.9; O2SAT 99
[2017-08-09] MEDS: ACETAMINOPHEN/HYDROcodone 325 MG/7.5 MG TAB PO PRN ×3 (00:16→17:24)
[2017-08-09] MEDS: ALPRAZolam 1 MG TAB PO PRN ×2 (00:16→10:46)
[2017-08-09] MEDS: PIPERACIL-TAZO 3.375 GM PREMIX 50 ML IV SCH ×4 (02:00→22:38)
[2017-08-09 04:00] VITALS: BP 108/65; PULSE 67; RESP 18; TEMP 96.5; O2SAT 96
[2017-08-09] MEDS: SODIUM CHLOR 0.9% 1000 ML INJ 1,000 ML IV SCH ×3 (05:23→22:38)
--- NOTE | 2017-08-09 07:59 | HHI.FPPN ---
Subjective Remarks Patient reports same amount of swelling and redness in her arm. Denies fevers that are new but does endorse persistent chills that are chronic. She denies cp, sob, or headaches. At home she is taking 40 units of Levemir with a ss NovoLog. She did become hypoglycemic recently (several weeks ago) and required hospitalization. She has been NPO for the past 12+ hours. Morning BG was ~161. (Patrick Garcia MD, R3) Objective Vitals Vital Signs Date Time Temp Pulse Resp B/P (MAP) Pulse Ox O2 Delivery O2 Flow Rate FiO2 08/09/17 04:00 96.5 67 18 108/65 (79) 96 08/09/17 00:02 96.9 68 18 136/71 (92) 99 08/08/17 17:42 97.4 89 15 155/88 (110) 99 I/O 08/08/17 08/08/17 08/08/17 08/09/17 08/09/17 08/09/17 07:00 15:00 23:00 07:00 15:00 23:00 Intake Total 360 ml 50 ml Balance 360 ml 50 ml Intake Oral 360 ml IV Total 50 ml # Voids 1 (Patrick Garcia MD, R3) Result Diagram: 08/08/174 08/08/17 1844 Imaging Last 72 hours Impressions Hand X-Ray 08/08/17 0000 Signed Impressions: Service Date/Time: Tuesday, August 08, 2017 17:59 - CONCLUSION: 1. No acute bony abnormality. No radiopaque foreign body. Blake Arias MD Objective Remarks GENERAL: This is a well-nourished, well-developed obese female patient who appears fatigued. SKIN: No rashes, ecchymoses or lesions. Cool and dry. Areas of scabbed excoriations on both arms. Left palm with 2 cm laceration surrounded by 3 x 4 cm area of significant erythema and edema, erythema extends about 12 cm up left arm- area demarcated with a marker on today's exam. No purulent drainage or bleeding. Warmth and tenderness to the touch. HEAD: Atraumatic. Normocephalic. No temporal or scalp tenderness. EYES: Pupils equal round and reactive. Extraocular motions intact. No scleral icterus. No injection or drainage. ENT: Nose without bleeding, purulent drainage or septal hematoma. Throat without erythema, tonsillar hypertrophy or exudate. Uvula midline. Airway patent. NECK: Trachea midline. No JVD or lymphadenopathy. Supple, nontender, no meningeal signs. CARDIOVASCULAR: Regular rate and rhythm without murmurs, gallops, or rubs. RESPIRATORY: Clear to auscultation. Breath sounds equal bilaterally. No wheezes , rales, or rhonchi. GASTROINTESTINAL: Abdomen soft, non-tender, nondistended. No hepato-splenomegaly , or palpable masses. No guarding. MUSCULOSKELETAL: Extremities without clubbing, cyanosis, or edema. No joint tenderness, effusion, or edema noted. No calf tenderness. Pain with passive extension and flexion of left first digit. Range of motion of left fingers limited by pain. Pain along palpation of lumbar spine - surgical scar 4 cm vertical just to the left side of lumbar spine. NEUROLOGICAL: Awake and alert. Cranial nerves II through XII intact. Motor and sensory grossly within normal limits. Normal speech. PSYCHIATRIC: Sad mood and depressed affect, appropriate insight and judgement, good eye contact. (Patrick Garcia MD, R3) A/P Assessment and Plan Patient is a 56-year-old female with a past medical history significant for DM type II, hypertension, hyperlipidemia, endometriosis, depression and anxiety who presents today for a hand laceration and is admitted for cellulitis. Discharge Planning Waiting surgical evaluation. If debridement, and doing well on PO antibiotics, may be discharged home in 1-2 days (08/10/17 - 08/11/17). (Patrick Garcia MD, R3) Attending Attestation Pt seen and examined, H&P reviewed, and corroborated with pt at bedside. Seen and d/w Dr Garcia this am. Call placed to Dr Reyes re: pt NPO status in event surgery indicated. I HAVE REVIEWED THE RECORD AND AGREE WITH THE ABOVE NOTE AND PLAN OF CARE WAS DISCUSSED. I HAVE AUTHORIZED THE ORDER FOR ADMISSION TO AN IN-PATIENT STATUS. (Marlyn Olmos MD) Problem List: (1) Cellulitis of hand, left ICD Codes: L03.114 - Cellulitis of left upper limb Status: Acute Plan: Physical exam consistent with non-purulent cellulitis. Consult Dr. Reyes with hand surgery. Appreciate his assistance in the management of Mrs. Bare. Leukocytosis of 11.6. Afebrile. BP WNLs and pt. not tachycardic. Blood cultures pending. IV Vanc. Q12 hrs (pharm assisting with dosing.) and Zosyn 3.375g IV Q6H - will continue for now. Pain control with [place] PRN, Morphine PRN Breakthrough pain Elevate affected area. Continue to monitor closely for signs of tendon involvement. (2) Diarrhea ICD Codes: R19.7 - Diarrhea, unspecified Status: Acute Plan: Baseline C diff testing in pt with 1wk hx watery diarrhea, no other risk factors (3) T2DM (type 2 diabetes mellitus) ICD Codes: E11.9 - Type 2 diabetes mellitus without complications Status: Chronic Plan: On Levemir 40 units SQ daily and Novolog TIDAC Hypoglycemic on admission to 45 on BMP. Corrected to 161 this AM. If going for surgery and will be NPO, we will keep her on the sliding scale with no long- acting insulin. If able to eat today 08/09/2017, will give 1/2 of home long- acting dose (20 units Levemir q daily). To follow up recs of surgery. Low dose SSI with Accu-checks (4) Anxiety ICD Codes: F41.9 - Anxiety disorder, unspecified Status: Chronic Plan: Continue Xanax 2mg PO TID (5) Hypertension ICD Codes: I10 - Essential (primary) hypertension Status: Chronic Plan: BP elevated on admission at 155/88 Continue home Losartan 100mg PO Daily and Metoprolol 37.5mg PO daily (6) Nutrition, metabolism, and development symptoms ICD Codes: R63.8 - Other symptoms and signs concerning food and fluid intake Status: Acute Plan: Fluids: Maintenance with NS @ 130ml/hr Electrolytes: wnl, continue to monitor and replete PRN Nutrition: Diabetic Diet DVT Ppx: Heparin [address] Marlyn Olmos. (Patrick Garcia MD, R3) Problem Qualifiers (1) T2DM (type 2 diabetes mellitus): Qualified Codes: E11.9 - Type 2 diabetes mellitus without complications; Z79.4 - terminal operations manager (current) use of insulin (2) Hypertension: Qualified Codes: I10 - Essential (primary) hypertension Patrick Garcia MD, R3 Aug 09, 2017 07:59 Marlyn Olmos MD Aug 09, 2017 09:55
[2017-08-09 08:00] VITALS: BP 127/72; PULSE 73; RESP 18; TEMP 98.2; O2SAT 96
[2017-08-09] MEDS: INSULIN ASPART SUPPLEMENTAL SCALE SQ SCH ×3 (08:00→17:24)
[2017-08-09] MEDS ORDERED: VANCOMYCIN INJ 1,000 MG in SODIUM CHLOR 0.9% 250 ML INJ 250 ML IV SCH (08:00)
[2017-08-09] MEDS: METOPROLOL SUCCINATE 25 MG EXTENDED RELEASE TAB PO SCH (09:00)
[2017-08-09] MEDS: SODIUM CHLORIDE 0.9% FLUSH 10 ML FLUSH IV FLUSH SCH ×2 (09:00→22:38)
[2017-08-09] MEDS: CETIRIZINE HCL 10 MG TAB PO SCH (09:00)
[2017-08-09] MEDS: FLUTICASONE PROPIONATE 50 MCG/ACT 16 GM NASAL SPRAY NASAL SCH ×2 (09:00→22:39)
[2017-08-09] MEDS: HEPARIN SODIUM - SQ 10,000 UNITS/ML VIAL SQ SCH ×2 (09:00→22:39)
[2017-08-09] MEDS: LOSARTAN 50 MG TAB PO SCH (09:00)
[2017-08-09] MEDS: VENLAFAXINE HCL XR 75 MG CAP PO SCH (09:00)
[2017-08-09] MEDS: VANCOMYCIN 1,500 MG/NS 500 ML IV SCH ×2 (11:45)
[2017-08-09 12:00] VITALS: BP 125/69; PULSE 69; RESP 18; TEMP 98.1; O2SAT 98
[2017-08-09] MEDS ORDERED: INSULIN DETEMIR 100 UNITS/ML VIAL SQ ONE (13:45)
[2017-08-09 13:56] VITALS: BP 133/63; PULSE 70; RESP 16; TEMP 98.1; O2SAT 97
--- NOTE | 2017-08-09 15:24 | RADRPT ---
EXAM DATE/TIME: 08/09/2017 14:02 [facility] COMPARISON: No previous studies available for comparison. INDICATIONS : Left hand/palm, abscess. MEDICAL HISTORY : Headaches. Anticoagulant therapy. Hypertension. Ulcer. Kidney stones. Diabetes. SURGICAL HISTORY : Appendectomy. Cholecystectomy. Hysterectomy. Oophorectomy. [place] ablations. Back surgery. Right sh oulder surgery. Breast surgery. ENCOUNTER: Initial ACUITY: 1 day PAIN SCORE: 6/10 LOCATION: Left hand. AREA EVALUATED: Left hand and palm. FINDINGS: Subcutaneous edema seen tracking within the superficial soft tissues. No abscess or fluid collections observed to suggest an abscess or hematoma. There is more loculated edema measuring 1.5 cm within th e palmar surface. CONCLUSION: Subcutaneous edema without abscess. Chris Fallon Jr., MD on August 09, 2017 at 15:20 Board Certified Radiologist. This report was verified electronically.
[2017-08-09 16:36] LABS: AUTOMATED NEUTROPHIL # 2.6 TH/MM3 (1.8-7.7); BASOPHIL % 0.7 % (0.0-2.0); EOSINOPHIL # 0.3 TH/MM3 (0-0.4); EOSINOPHIL % 6.4 % (0.0-4.0); HEMATOCRIT 31.3 % (35.0-46.0); HEMOGLOBIN 10.5 GM/DL (11.6-15.3); LYMPH % 36.6 % (9.0-44.0); LYMPHOCYTE # 1.9 TH/MM3 (1.0-4.8); MEAN CELL VOLUME 83.4 FL (80.0-100.0); MEAN CORPUSCULAR HEMOGLOBIN 27.8 PG (27.0-34.0); MEAN CORPUSCULAR HGB CONC 33.4 % (32.0-36.0); MEAN PLATELET VOLUME 8.1 FL (7.0-11.0); MONOCYTE # 0.3 TH/MM3 (0-0.9); NEUT % 50.3 % (16.0-70.0); PLATELET COUNT 241 TH/MM3 (150-450); RED BLOOD COUNT 3.76 MIL/MM3 (4.00-5.30); RED CELL DISTRIBUTION WIDTH 14.6 % (11.6-17.2); WHITE BLOOD COUNT 5.2 TH/MM3 (4.0-11.0)
[2017-08-09 17:09] LABS: BICARBONATE 25.4 MEQ/L (21.0-32.0); CALCIUM 7.6 MG/DL (8.5-10.1); CREATININE 0.96 MG/DL (0.50-1.00)
--- NOTE | 2017-08-09 18:23 | MB ---
cc: FORRSET GARCIA M.D. DATE OF CONSULTATION: 08/09/2017 REQUESTING PHYSICIAN: Dr. Marlyn Olmos REASON FOR CONSULTATION: Injury to the left hand with possible abscess. HISTORY OF PRESENT ILLNESS The patient is a 56-year-old female with a 15-year history of diabetes. In addition she does have hypertension, hyperlipidemia, endometriosis, depression, anxiety. Approximately two days ago the patient was cutting an avocado and while she was trying to get the pit out of the avocado, she pushed too far and the knife went into her hand. This is the palm of her left hand. The patient indicated that it bleed a lot and then she washed it out. The patient noticed that the hand did get red and swollen and painful over the next two days. The patient had some clindamycin left over, it was 300 milligrams. This apparently did not help. The patient was seen in the emergency room and admitted for intravenous antibiotics. Of note is that her one week ago while in Hospice due to renal disease. Consultation is requested regarding evaluation and treatment of this patient. Of note, the patient did have an ultrasound earlier today which indicated no evidence of an abscess. The patient does note that she was not pushing hard on the knife as she was just removing a pit from an avocado. REVIEW OF SYSTEMS: Otherwise negative except as related to her other medical problems. SOCIAL HISTORY: As noted above. MEDICAL HISTORY The patient has diabetes as noted above. She does take insulin and does have hypertension, hypercholesterolemia, chronic severe pelvic pain, endometriosis. She has anemia with a history of iron infusions, Linares's esophagus, chronic headache, depression, anxiety, dermatitis and impaired renal function. PAST SURGICAL HISTORY: Significant for: 1. Hysterectomy. 2. Oophorectomy. 3. Spinal cord stimulator. 4. Surgery x4. 5. Pelvic nerve blocks. 6. Cholecystectomy. 7. Appendectomy. 8. Gastric bypass in 1999 when she lost 180 pounds. MEDICATIONS: Listed on the chart. ALLERGIES: No known food or drug allergies. FAMILY HISTORY: Noncontributory. PHYSICAL EXAMINATION: The patient is sitting comfortably in bed. VITAL SIGNS: Temperature is 98.1, respiratory rate 16, pulse of 70, blood pressure 133/63, pulse oximetry is 97% on room air. EXTREMITIES: Examination of her upper extremities reveals swelling of the left hand. There is an entrance wound in the palm which has healed. There is no fluctuance. There is no drainage. The patient can flex, extend her fingers without significant discomfort but this is only a small amount of flexion and extension. She is able to flex the tips of all of her fingers and her superficial flexors to appear to be intact. Her two-point discrimination appears to be within normal limits. There is a demarcation at her forearm which is no longer reddened, all the way down to her hand. The redness on her forearm appears to have abated and resolved. LABORATORY DATA White count is 11.6, hemoglobin is 12.0, hematocrit 36.3, platelet count 282,000. IMAGING STUDIES: The x-ray films are reviewed and there is no evidence of a foreign body or bony injury. IMPRESSION: The patient appears to have a superficial laceration to her palpable masses with a significant amount of edema and resolving cellulitis. PLAN: I recommend the patient continue on IV antibiotics overnight and if she is improved in the morning, she could be discharged on oral antibiotics to be followed up in my clinic or with the family physician clinic. The patient understands and accepts the plan. MD LIA Gruber/CHRISTIAN /4:36 PM /5:51 PM CL
[2017-08-09 20:18] VITALS: BP 132/63; PULSE 61; RESP 16; TEMP 98.4; O2SAT 96
[2017-08-09] MEDS ORDERED: INSULIN DETEMIR 100 UNITS/ML VIAL SQ SCH (22:30)
[2017-08-10] MEDS: INSULIN ASPART SUPPLEMENTAL SCALE SQ SCH ×3 (00:02→12:06)
[2017-08-10] MEDS: ACETAMINOPHEN/HYDROcodone 325 MG/7.5 MG TAB PO PRN ×2 (00:03→08:55)
[2017-08-10 00:07] VITALS: BP 175/79; PULSE 66; RESP 16; TEMP 98.3; O2SAT 96
[2017-08-10] MEDS: PIPERACIL-TAZO 3.375 GM PREMIX 50 ML IV SCH ×2 (01:32→10:51)
[2017-08-10 03:47] VITALS: BP 144/73; PULSE 65; RESP 18; TEMP 98.7; O2SAT 96
[2017-08-10] MEDS: VANCOMYCIN 1,500 MG/NS 500 ML IV SCH ×2 (05:23)
[2017-08-10 07:21] VITALS: BP 121/75; PULSE 71; RESP 18; TEMP 97.7; O2SAT 94
[2017-08-10 07:26] LABS: AUTOMATED NEUTROPHIL # 2.7 TH/MM3 (1.8-7.7); BASOPHIL % 0.8 % (0.0-2.0); EOSINOPHIL # 0.4 TH/MM3 (0-0.4); EOSINOPHIL % 6.5 % (0.0-4.0); HEMATOCRIT 32.7 % (35.0-46.0); HEMOGLOBIN 10.8 GM/DL (11.6-15.3); LYMPH % 40.4 % (9.0-44.0); LYMPHOCYTE # 2.4 TH/MM3 (1.0-4.8); MEAN CELL VOLUME 83.6 FL (80.0-100.0); MEAN CORPUSCULAR HEMOGLOBIN 27.7 PG (27.0-34.0); MEAN CORPUSCULAR HGB CONC 33.2 % (32.0-36.0); MEAN PLATELET VOLUME 8.3 FL (7.0-11.0); MONO % 6.6 % (0.0-8.0); MONOCYTE # 0.4 TH/MM3 (0-0.9); NEUT % 45.7 % (16.0-70.0); PLATELET COUNT 261 TH/MM3 (150-450); RED BLOOD COUNT 3.91 MIL/MM3 (4.00-5.30); RED CELL DISTRIBUTION WIDTH 15.1 % (11.6-17.2); WHITE BLOOD COUNT 5.8 TH/MM3 (4.0-11.0)
[2017-08-10 08:04] LABS: ALBUMIN 2.7 GM/DL (3.4-5.0); ALT (GPT) 61 U/L (10-53); AST (GOT) 71 U/L (15-37); BICARBONATE 25.4 MEQ/L (21.0-32.0); BLOOD UREA NITROGEN 11 MG/DL (7-18); CALCIUM 8.1 MG/DL (8.5-10.1); CHLORIDE 111 MEQ/L (98-107); CREATININE 1.03 MG/DL (0.50-1.00); GLOMERULAR FILTRATION RATE 55 ML/MIN (>89); SODIUM (NA) 142 MEQ/L (136-145)
[2017-08-10 08:07] LABS: GLUCOSE,RANDOM 44 MG/DL (74-106)
[2017-08-10 08:09] LABS: ALKALINE PHOSPHATASE 157 U/L (45-117); TOTAL BILIRUBIN ADULT 0.5 MG/DL (0.2-1.0); TOTAL PROTEIN 6.1 GM/DL (6.4-8.2)
[2017-08-10] MEDS: SODIUM CHLORIDE 0.9% FLUSH 10 ML FLUSH IV FLUSH SCH (08:20)
--- NOTE | 2017-08-10 08:45 | HHI.FPPN ---
Subjective Remarks Pain staying the same. Swelling and redness has decreased since yesterday. More movement in the left hand on flexion of the fingers. No fevers or chills that are new. No longer having diarrhea. Still upset about passing last week however she is able to get support at home with friends and will be moving to live with family in several weeks. (Patrick Garcia MD, R3) Objective Vitals Vital Signs Date Time Temp Pulse Resp B/P (MAP) Pulse Ox O2 Delivery O2 Flow Rate FiO2 08/10/17 07:21 97.7 71 18 121/75 (90) 94 08/10/17 03:47 98.7 65 18 144/73 (96) 96 08/10/17 01:03 14 08/10/17 00:07 98.3 66 16 175/79 (111) 96 08/10/17 00:02 15 08/09/17 20:18 98.4 61 16 132/63 (86) 96 08/09/17 13:56 98.1 70 16 133/63 (86) 97 08/09/17 12:00 98.1 69 18 125/69 (87) 98 I/O 08/09/17 08/09/17 08/09/17 08/10/17 08/10/17 08/10/17 07:00 15:00 23:00 07:00 15:00 23:00 Intake Total 50 ml 1565 ml 50 ml Balance 50 ml 1565 ml 50 ml IV Total 50 ml 1565 ml 50 ml # Voids 1 (Patrick Garcia MD, R3) Result Diagram: 08/10/17 0628 08/10/17 0628 Imaging Last 72 hours Impressions Soft Tissue Ultrasound 08/09/17 0000 Signed Impressions: Service Date/Time: Wednesday, August 09, 2017 14:02 - CONCLUSION: Subcutaneous edema without abscess. Chris Fallon Jr., MD Hand X-Ray 08/08/17 0000 Signed Impressions: Service Date/Time: Tuesday, August 08, 2017 17:59 - CONCLUSION: 1. No acute bony abnormality. No radiopaque foreign body. Blake Arias MD Objective Remarks GENERAL: This is a well-nourished, well-developed obese female patient who appears fatigued. SKIN: No rashes, ecchymoses or lesions. Cool and dry. Areas of scabbed excoriations on both arms. Left palm with 2 cm laceration surrounded by 3 x 4 cm area erythema. Edema reduced. Erythema is localized to the thenar imminence today. Reduced erythema in comparison to previous area demarcated on admission. No purulent drainage or bleeding. Warmth and tenderness to the touch. HEAD: Atraumatic. Normocephalic. No temporal or scalp tenderness. EYES: Pupils equal round and reactive. Extraocular motions intact. No scleral icterus. No injection or drainage. ENT: Nose without bleeding, purulent drainage or septal hematoma. Throat without erythema, tonsillar hypertrophy or exudate. Uvula midline. Airway patent. NECK: Trachea midline. No JVD or lymphadenopathy. Supple, nontender, no meningeal signs. CARDIOVASCULAR: Regular rate and rhythm without murmurs, gallops, or rubs. RESPIRATORY: Clear to auscultation. Breath sounds equal bilaterally. No wheezes , rales, or rhonchi. GASTROINTESTINAL: Abdomen soft, non-tender, nondistended. No hepato-splenomegaly , or palpable masses. No guarding. MUSCULOSKELETAL: Extremities without clubbing, cyanosis, or edema. No joint tenderness, effusion, or edema noted. No calf tenderness. Pain with passive extension and flexion of left first digit. Range of motion of left fingers limited by pain. NEUROLOGICAL: Awake and alert. Cranial nerves II through XII intact. Motor and sensory grossly within normal limits. Normal speech. PSYCHIATRIC: Sad mood and depressed affect, appropriate insight and judgement, good eye contact. (Patrick Garcia MD, R3) A/P Assessment and Plan Patient is a 56-year-old female with a past medical history significant for DM type II, hypertension, hyperlipidemia, endometriosis, depression and anxiety who presents today for a hand laceration and is admitted for cellulitis. Discharge Planning Given clinical improvement while on vancomycin and zosyn IV ABX, no abscess on US, and no surgical intervention at this time, she will be discharged home today with PO ABX. Discussed with hand surgery. (Patrick Garcia MD, R3) Attending Attestation Patient seen and examined with Dr. Garcia this morning. Agree with plan of care as discussed with me and documented in the resident note. (Marlyn Olmos MD) Problem List: (1) Cellulitis of hand, left ICD Codes: L03.114 - Cellulitis of left upper limb Status: Acute Plan: Physical exam consistent with non-purulent cellulitis. Consult Dr. Reyes with hand surgery. Appreciate his assistance in the management of Mrs. Cason. Recommended outpatient abx at this time. Leukocytosis of 11.6 resolved. BP WNLs and pt. not tachycardic. Blood cultures pending negative x 24 hours. IV Vanc. Q12 hrs (pharm assisting with dosing.) and Zosyn 3.375g IV Q6H. Last dose prior to discharge. Pain control with [place] PRN. Elevate affected area. (2) Diarrhea ICD Codes: R19.7 - Diarrhea, unspecified Status: Acute Plan: Baseline C diff testing in pt with 1wk hx watery diarrhea, no other risk factors. Diarrhea resolved. (3) T2DM (type 2 diabetes mellitus) ICD Codes: E11.9 - Type 2 diabetes mellitus without complications Status: Chronic Plan: On Levemir 40 units SQ daily and Novolog TIDAC Hypoglycemic on admission to 45 on BMP. Given 30 units of Levemir on first day of admission. BG this AM was 44 --> given juice and corrected to > 100. Recommend reduced dose of Levemir 10 units at bedtime on discharge to avoid hypoglycemia. Hypoglycemia signs and symptoms reviewed. (4) Anxiety ICD Codes: F41.9 - Anxiety disorder, unspecified Status: Chronic Plan: Continue Xanax 2mg PO TID (5) Hypertension ICD Codes: I10 - Essential (primary) hypertension Status: Chronic Plan: BP elevated on admission at 155/88 Continue home Losartan 100mg PO Daily and Metoprolol 37.5mg PO daily. (6) Nutrition, metabolism, and development symptoms ICD Codes: R63.8 - Other symptoms and signs concerning food and fluid intake Status: Acute Plan: Fluids: Tolerating PO. Electrolytes: wnl, continue to monitor and replete PRN Nutrition: Diabetic Diet. DVT Ppx: Heparin [address] Marlyn Olmos. (Patrick Garcia MD, R3) Problem Qualifiers (1) T2DM (type 2 diabetes mellitus): Qualified Codes: E11.9 - Type 2 diabetes mellitus without complications; Z79.4 - prison (current) use of insulin (2) Hypertension: Qualified Codes: I10 - Essential (primary) hypertension Patrick Garcia MD, R3 Aug 10, 2017 08:45 Marlyn Olmos MD Aug 10, 2017 13:48
[2017-08-10] MEDS: LOSARTAN 50 MG TAB PO SCH (08:51)
[2017-08-10] MEDS: VENLAFAXINE HCL XR 75 MG CAP PO SCH (08:52)
[2017-08-10] MEDS: CETIRIZINE HCL 10 MG TAB PO SCH (08:52)
[2017-08-10] MEDS: METOPROLOL SUCCINATE 25 MG EXTENDED RELEASE TAB PO SCH (08:53)
[2017-08-10] MEDS: FLUTICASONE PROPIONATE 50 MCG/ACT 16 GM NASAL SPRAY NASAL SCH (08:53)
[2017-08-10] MEDS: HEPARIN SODIUM - SQ 10,000 UNITS/ML VIAL SQ SCH (08:53)
[2017-08-10] MEDS ORDERED: PNEUMOCOCCAL POLYVALENT INJ 25 MCG/0.5 ML SYR IM ONE (10:00)
[2017-08-10] MEDS ORDERED: DULoxetine HCl DR 30 MG CAP PO ONE (10:15)
[2017-08-10] MEDS ORDERED: CLIN300C5 PO (10:20)
[2017-08-10] MEDS ORDERED: LEVEMIR SQ ×2 (10:20→12:48)
[2017-08-10] MEDS ORDERED: HYDR-3580 PO (10:20)
[2017-08-10] MEDS: ALPRAZolam 1 MG TAB PO PRN (10:54)
[2017-08-10 11:24] VITALS: BP 123/72; PULSE 70; RESP 18; TEMP 98.2; O2SAT 99
--- NOTE | 2017-08-10 12:51 | HHI.DCPOC ---
Discharge Care Plan Diagnosis: (1) Hypoglycemia (2) Cellulitis of hand, left (3) Anxiety (4) Nutrition, metabolism, and development symptoms (5) T2DM (type 2 diabetes mellitus) (6) Diarrhea Goals to Promote Your Health * To prevent worsening of your condition and complications * To maintain your health at the optimal level Directions to Meet Your Goals Take your medications as prescribed Follow your dietary instruction Follow activity as directed Keep your appointments as scheduled Take your immunizations and boosters as scheduled If your symptoms worsen call your PCP, if no PCP go to Urgent Care Center or Emergency Room Smoking is Dangerous to Your Health. Avoid second hand smoke Call the 24-hour hour crisis hotline for domestic abuse at Patrick Garcia MD, R3 Aug 10, 2017 12:51
--- NOTE | 2017-08-10 13:43 | HHI.DS ---
Discharge Summary Admission Date Aug 09, 2017 at 13:07 Admitting Diagnosis left hand cellulitis with lymphadenitis (1) Cellulitis of hand, left Plan: Physical exam consistent with non-purulent cellulitis. Consult Dr. Reyes with hand surgery. Appreciate his assistance in the management of Mrs. Cason. Recommended outpatient abx at this time. Leukocytosis of 11.6 resolved. BP WNLs and pt. not tachycardic. Blood cultures pending negative x 24 hours. IV Vanc. Q12 hrs (pharm assisting with dosing.) and Zosyn 3.375g IV Q6H. Last dose prior to discharge. Pain control with [place] PRN. Elevate affected area. ICD Codes: L03.114 - Cellulitis of left upper limb Status: Acute (2) Diarrhea Plan: Baseline C diff testing in pt with 1wk hx watery diarrhea, no other risk factors. Diarrhea resolved. ICD Codes: R19.7 - Diarrhea, unspecified Status: Acute (3) T2DM (type 2 diabetes mellitus) Plan: On Levemir 40 units SQ daily and Novolog TIDAC Hypoglycemic on admission to 45 on BMP. Given 30 units of Levemir on first day of admission. BG this AM was 44 --> given juice and corrected to > 100. Recommend reduced dose of Levemir 10 units at bedtime on discharge to avoid hypoglycemia. Hypoglycemia signs and symptoms reviewed. ICD Codes: E11.9 - Type 2 diabetes mellitus without complications Status: Chronic (4) Anxiety Plan: Continue Xanax 2mg PO TID ICD Codes: F41.9 - Anxiety disorder, unspecified Status: Chronic (5) Hypertension Plan: BP elevated on admission at 155/88 Continue home Losartan 100mg PO Daily and Metoprolol 37.5mg PO daily. ICD Codes: I10 - Essential (primary) hypertension Status: Chronic (6) Nutrition, metabolism, and development symptoms Plan: Fluids: Tolerating PO. Electrolytes: wnl, continue to monitor and replete PRN Nutrition: Diabetic Diet. DVT Ppx: Heparin [address] Marlyn Olmos. ICD Codes: R63.8 - Other symptoms and signs concerning food and fluid intake Status: Acute Brief History Patient is a 56-year-old female with a past medical history significant for DM type II, hypertension, hyperlipidemia, endometriosis, depression and anxiety who presents today for a hand infection. She was cutting an Avocado two days ago when she accidentally sliced her left hand with the knife. The site started getting red, swollen, and painful and has progressively worsened over the past two days. The redness is now extending up her arm. She is having trouble flexing her fingers due to pain. The pain is rated 9/10. She denies any fever. She did take 4 pills of a leftover Clindamycin 300mg prescription over the course of the last two days. She was evaluated by her PCP, Dr. Gopal Raman , today and was sent to the ED for further evaluation and treatment. She notes that she has also had diarrhea for the past week, but thinks this may be due to stress. Her one week ago while on Hospice and she states that her entire world is flipped upside down. She has been having a difficult time coping with his loss and recently had her Xanax increased to 2mg PO TID to help with her anxiety during this stressful time. CBC/BMP: 08/10/17 0628 08/10/17 0628 Significant Findings Laboratory Tests Test 08/08/17 18:44 08/09/17 02:58 08/09/17 16:17 08/10/17 06:28 White Blood Count 11.6 TH/MM3 (4.0-11.0) Erythrocyte Sedimentation Rate 44 mm/hr (0-30) Random Glucose 45 MG/DL (74-106) 143 MG/DL (74-106) 44 MG/DL (74-106) Estimat Glomerular Filtration Rate 58 ML/MIN (>89) 60 ML/MIN (>89) 55 ML/MIN (>89) Red Blood Count 3.76 MIL/MM3 (4.00-5.30) 3.91 MIL/MM3 (4.00-5.30) Hemoglobin 10.5 GM/DL (11.6-15.3) 10.8 GM/DL (11.6-15.3) Hematocrit 31.3 % (35.0-46.0) 32.7 % (35.0-46.0) Eosinophils (%) (Auto) 6.4 % (0.0-4.0) 6.5 % (0.0-4.0) Calcium Level 7.6 MG/DL (8.5-10.1) 8.1 MG/DL (8.5-10.1) Chloride Level 109 MEQ/L (98-107) 111 MEQ/L (98-107) Creatinine 1.03 MG/DL (0.50-1.00) Total Protein 6.1 GM/DL (6.4-8.2) Albumin 2.7 GM/DL (3.4-5.0) Alkaline Phosphatase 157 U/L (45-117) Aspartate Amino Transf (AST/SGOT) 71 U/L (15-37) Alanine Aminotransferase (ALT/SGPT) 61 U/L (10-53) PE at Discharge GENERAL: This is a well-nourished, well-developed obese female patient who appears fatigued. SKIN: No rashes, ecchymoses or lesions. Cool and dry. Areas of scabbed excoriations on both arms. Left palm with 2 cm laceration surrounded by 3 x 4 cm area erythema. Edema reduced. Erythema is localized to the thenar imminence today. Reduced erythema in comparison to previous area demarcated on admission. No purulent drainage or bleeding. Warmth and tenderness to the touch. HEAD: Atraumatic. Normocephalic. No temporal or scalp tenderness. EYES: Pupils equal round and reactive. Extraocular motions intact. No scleral icterus. No injection or drainage. ENT: Nose without bleeding, purulent drainage or septal hematoma. Throat without erythema, tonsillar hypertrophy or exudate. Uvula midline. Airway patent. NECK: Trachea midline. No JVD or lymphadenopathy. Supple, nontender, no meningeal signs. CARDIOVASCULAR: Regular rate and rhythm without murmurs, gallops, or rubs. RESPIRATORY: Clear to auscultation. Breath sounds equal bilaterally. No wheezes , rales, or rhonchi. GASTROINTESTINAL: Abdomen soft, non-tender, nondistended. No hepato-splenomegaly , or palpable masses. No guarding. MUSCULOSKELETAL: Extremities without clubbing, cyanosis, or edema. No joint tenderness, effusion, or edema noted. No calf tenderness. Pain with passive extension and flexion of left first digit. Range of motion of left fingers limited by pain. NEUROLOGICAL: Awake and alert. Cranial nerves II through XII intact. Motor and sensory grossly within normal limits. Normal speech. PSYCHIATRIC: Sad mood and depressed affect, appropriate insight and judgement, good eye contact. Hospital Course Mrs. Cason is a very pleasant 56-year-old female, with a past medical history significant for chronic pain, severe anxiety/depression, type 2 diabetes mellitus on insulin therapy, hypoglycemia, and hypertension, who presented to the emergency room with increased redness and swelling in her left hand. She took some of her 's clindamycin, but this did not help. Her hospitalization she was started on broad-spectrum antibiotics including vancomycin and Zosyn. The redness, swelling, significantly improved over the next 36 hours. Hand surgery was consulted, and an ultrasound of this extremity was obtained. This revealed no significant abscess. Surgical debridement was not recommended, given her significant improvement with IV antibiotics. She was discharged home on clindamycin 600 mg every 8 hours, for 7 additional days. She was instructed to soak her hand in Epsum salts 3 times a day, and gradually improve her range of motion. To note, her had one week prior to admission, she was very upset throughout the admission. She denied any active or passive thoughts of harming herself or others. She was discharged home in stable condition. Pt Condition on Discharge: Good Discharge Disposition: Discharge Home Discharge Instructions DIET: Follow Instructions for: Diabetic Diet Activities you can perform: See Additionl Instruction Other Activity Instructions: Left hand TID epsom salt soaks New Medications: Clindamycin (Clindamycin) 300 Mg Cap 600 MG PO Q8H for Infection, #21 CAP 0 Refills Hydrocodone/Acetaminophen (Hydrocodone-Acetamin 7.5-325) 7.5 Mg-325 Mg Tablet 1 TAB PO Q6HR PRN for PAIN SCALE 6 TO 10, #12 TAB 0 Refills Insulin Detemir Inj (Levemir Inj) 1,000 unit/ 10 ML Vial 10 UNITS SQ HS, #6 VIAL 0 Refills Do not mix with any other Insulin. Continued Medications: Alprazolam (Xanax) 1 Mg Tab 1 MG PO Q8H PRN for ANXIETY, #90 TAB 0 Refills Cetirizine HCl (Zyrtec) 10 Mg Capsule 10 TAB PO DAILY, #30 TAB 8 Refills Fluticasone Nasal [place] (Flonase Nasal [place]) 50 Mcg/Act [place] 50 MCG EACH NARE BID for Allergies, #1 BOTTLE 5 Refills Insulin Aspart Inj (Novolog Inj) 1,000 Unit/10 Ml Vial 5-25 UNITS SQ TIDAC for Blood Sugar Management, #2 VIAL 11 Refills sugars<70,0units;[id number],5units;sugar 200-249,10units;sugar 250-299,15units; [id number],20units;sugar>349,25units Losartan (Cozaar) 100 Mg Tab 100 MG PO DAILY for Blood Pressure Management, #90 TAB 2 Refills Metoprolol Succinate ER 24 HR (Metoprolol Succinate ER 24 HR) 25 Mg Tab 37.5 MG PO DAILY, #60 TAB 1 Refill Ropinirole (Ropinirole) 2 Mg Tab 2 MG PO HS, #30 TAB 3 Refills Tizanidine (Tizanidine) 4 Mg Tab 4 MG PO TID for Muscle Spasm, #120 TAB 3 Refills Venlafaxine ER 24 HR (Effexor XR 24 HR) 150 Mg Cap 150 MG PO DAILY, #30 CAP 3 Refills Patrick Garcia MD, R3 Aug 10, 2017 13:43
[2017-08-11] MEDS ORDERED: PHARMACY ORDERED LAB ONE (15:45)
== END 2017-08-10 14:14 | disposition home or self-care (01) | DRG 603 ==
LOC: NEPE 17:40 → NEDA 20:24 → NEDH 08-09 03:13 → OBSVTOIN 08-09 13:07 → NEPFCDU 08-09 13:45
PROVIDERS: ADMIT Family Medicine; ATTEND Family Medicine
DX: L03.114 Cellulitis of left upper limb (principal); E11.649 Type 2 diabetes mellitus with hypoglycemia without coma; S61.412A Laceration without foreign body of left hand, initial encounter; I10 Essential (primary) hypertension; F32.9 Major depressive disorder, single episode, unspecified; D64.9 Anemia, unspecified; L04.2 Acute lymphadenitis of upper limb; F41.9 Anxiety disorder, unspecified; N80.9 Endometriosis, unspecified; E78.5 Hyperlipidemia, unspecified; R19.7 Diarrhea, unspecified; G89.29 Other chronic pain; R10.2 Pelvic and perineal pain; F12.90 Cannabis use, unspecified, uncomplicated; W26.0XXA Contact with knife, initial encounter; Z23 Encounter for immunization; Z66 Do not resuscitate; Z72.0 Tobacco use; Z79.4 Long term (current) use of insulin; Z98.84 Bariatric surgery status
CPT/HCPCS: 73130; 76999; 80048; 80053; 82948; 83605; 85025; 85610; 85652; 85730; 87040; 90471; 90714; 90732; 96361; 96365; 96366; 96367; 96372; 96375; 96376; G0378; J1644; J1815; J1885; J2270; J2405; J2543; J3370; J7030; J7040; J7050